=== PATIENT | female | born 1985 | race Two or more races ===

== ENCOUNTER 2022-06-28 16:17 | Emergency (ER) | payer SELFPAY ==
[~2022-06-28] VITALS: Ht 160 cm; Wt 45.4 kg
--- NOTE | 2022-06-28 16:30 | NUR ---
Pt arrived in the ED w/ c/o headache, 10/05. Seen by Dr. Pascal for MSE.
[2022-06-28] MEDS ORDERED: AMOX-430 PO (16:57)
[2022-06-28] MEDS ORDERED: CYCL5TAB PO (16:57)
[2022-06-28] MEDS ORDERED: NAPR-1164 PO (16:57)
--- NOTE | 2022-06-28 17:09 | NUR ---
Patient discharged to home in stable condition. Written and verbal after care instructions given. Patient verbalizes understanding of instructions. Stressed follow up or return to ER for worsening s/s.
[2022-06-28 17:10] VITALS: BP 124/78
== END 2022-06-28 17:10 | disposition home or self-care (01) ==
LOC: ER 16:17
DX: R51.9 Headache, unspecified (principal); M26.623 Arthralgia of bilateral temporomandibular joint
CPT/HCPCS: A4663